=== PATIENT | male | born 2000 | race Hispanic/Latino ===

== ENCOUNTER 2018-04-05 20:11 | Emergency (ER) | payer SELFPAY ==
--- NOTE | 2018-04-05 20:29 | ER ---
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 pt ak1 denies N/V. Transition of care: patient was not received from another setting of care. Onset of symptoms is unknown. Risk Assessment: Do you want to hurt yourself or someone else? Patient reports no desire to harm self or others. Initial Sepsis Screen: Does the patient meet any 2 criteria? No. Patient's initial sepsis screen is negative. Does the patient have a suspected source of infection? No. Patient's initial sepsis screen is negative. Care prior to arrival: None. 20:16 Method Of Arrival: Ambulatory ak1 20:16 Acuity: RAMA 4 ak1 Triage Assessment: 20:17 General: Appears in no apparent distress. Behavior is calm, cooperative. ak1 Historical: - Allergies: 20:17 No Known Allergies; ak1 - Home Meds: 20:17 None [Active]; ak1 - PMHx: 20:17 None; ak1 - PSHx: 20:17 None; ak1 - Immunization history:: Adult Immunizations unknown. - Social history:: Smoking status: Patient/guardian denies using tobacco. - Ebola Screening: : No symptoms or risks identified at this time. Screenin:37 Abuse screen: Denies threats or abuse. Denies injuries from another. Nutritional lp1 screening: No deficits noted. Tuberculosis screening: No symptoms or risk factors identified. Fall Risk None identified. Assessment: 20:36 General: Appears in no apparent distress. Behavior is appropriate for age. Pain: Denies lp1 pain. Neuro: Level of Consciousness is awake, alert, obeys commands. Cardiovascular: Patient's skin is warm and dry. Respiratory: Respiratory effort is even, unlabored. GI: Abdomen is flat, Bowel sounds present X 4 quads. Abd is soft and non tender X 4 quads. : No signs and/or symptoms were reported regarding the genitourinary system. EENT: No signs and/or symptoms were reported regarding the EENT system. Derm: Skin is pink, warm \T\ dry. Musculoskeletal: Circulation, motion, and sensation intact. Vital Signs: 20:17 BP 112 / 73; Pulse 88; Resp 18; Temp 98.2; Pulse Ox 99% on R/A; Weight 63.5 kg (R); ak1 Height 5 ft. 7 in. (170.18 cm) (R); Pain 5/10; 20:17 Body Mass Index 21.93 (63.50 kg, 170.18 cm) ak1 ED Course: 20:14 Patient arrived in ED. es 20:17 Triage completed. ak1 20:17 Arm band placed on Patient placed in an exam room, Patient notified of wait time. ak1 20:18 Jonas Oswald MD is Attending Physician. gs 20:24 Hero Wong RN is Primary Nurse. ao 20:28 Hood Collins MD is Referral Physician. gs 20:37 No provider procedures requiring assistance completed. Patient did not have IV access lp1 during this emergency room visit. 20:38 Patient has correct armband on for positive identification. lp1 Administered Medications: No medications were administered Outcome: 20:28 Discharge ordered by . gs 20:38 Discharged to home ambulatory. lp1 20:38 Condition: good 20:38 Discharge instructions given to patient, Instructed on discharge instructions, follow up and referral plans. medication usage, Demonstrated understanding of instructions, follow-up care, medications, Prescriptions given X 1. 20:38 Patient left the ED. lp1 Signatures: Carie Posey Laura, RN RN 1 Saundra Haynes RN RN [facility] Hero Wong RN RN ao Starr, Gregory, MD MD gs
--- NOTE | 2018-04-05 20:29 | EDPHYS ---
Physician Documentation [facility] Name: Caleb Pinto Age: 17 yrs Sex: Male : 2000 Arrival Date: 04/05/2018 Time: 20:14 Bed 7 Private MD: ED Physician oJnas Oswald HPI: 04/05 20:26 This 17 yrs old Male presents to ER via Ambulatory with complaints of gs Abdominal Burn. 20:26 The patient presents with abdominal pain in the epigastric area. Onset: The gs symptoms/episode began/occurred gradually, 8 week(s) ago. The symptoms do not radiate. Associated signs and symptoms: Pertinent negatives: nausea and vomiting, diarrhea. The symptoms are described as burning. Modifying factors: The symptoms are alleviated by nothing, the symptoms are aggravated by food. Severity of pain: At its worst the pain was moderate in the emergency department the pain has resolved and did so earlier today. The patient has experienced similar episodes in the past, several times. The patient has not recently seen a physician. Historical: - Allergies: 20:17 No Known Allergies; ak1 - Home Meds: 20:17 None [Active]; ak1 - PMHx: 20:17 None; ak1 - PSHx: 20:17 None; ak1 - Immunization history:: Adult Immunizations unknown. - Social history:: Smoking status: Patient/guardian denies using tobacco. - Ebola Screening: : No symptoms or risks identified at this time. ROS: 20:26 All other systems are negative. gs Exam: 20:26 Head/Face: Normocephalic, atraumatic. Eyes: Pupils equal round and reactive to light, gs extra-ocular motions intact. Lids and lashes normal. Conjunctiva and sclera are non-icteric and not injected. Cornea within normal limits. Periorbital areas with no swelling, redness, or edema. ENT: Nares patent. No nasal discharge, no septal abnormalities noted. Tympanic membranes are normal and external auditory canals are clear. Oropharynx with no redness, swelling, or masses, exudates, or evidence of obstruction, uvula midline. Mucous membranes moist. Neck: Trachea midline, no thyromegaly or masses palpated, and no cervical lymphadenopathy. Supple, full range of motion without nuchal rigidity, or vertebral point tenderness. No Meningismus. Chest/axilla: Normal chest wall appearance and motion. Nontender with no deformity. No lesions are appreciated. Cardiovascular: Regular rate and rhythm with a normal S1 and S2. No gallops, murmurs, or rubs. Normal PMI, no JVD. No pulse deficits. Respiratory: Lungs have equal breath sounds bilaterally, clear to auscultation and percussion. No rales, rhonchi or wheezes noted. No increased work of breathing, no retractions or nasal flaring. Back: No spinal tenderness. No costovertebral tenderness. Full range of motion. Skin: Warm, dry with normal turgor. Normal color with no rashes, no lesions, and no evidence of cellulitis. MS/ Extremity: Pulses equal, no cyanosis. Neurovascular intact. Full, normal range of motion. Neuro: Awake and alert, GCS 15, oriented to person, place, time, and situation. Cranial nerves II-XII grossly intact. Motor strength 5/5 in all extremities. Sensory grossly intact. Cerebellar exam normal. Normal gait. 20:26 Constitutional: The patient appears in no acute distress, alert, awake. 20:26 Abdomen/GI: Palpation: nontender, in all quadrants, rebound tenderness, is not appreciated. Vital Signs: 20:17 BP 112 / 73; Pulse 88; Resp 18; Temp 98.2; Pulse Ox 99% on R/A; Weight 63.5 kg (R); ak1 Height 5 ft. 7 in. (170.18 cm) (R); Pain 5/10; 20:17 Body Mass Index 21.93 (63.50 kg, 170.18 cm) ak1 MDM: 20:23 Patient medically screened. gs 20:26 Differential diagnosis: gastritis, gastroesophageal reflux disease, non-specific abd gs pain. Data reviewed: vital signs, nurses notes. Administered Medications: No medications were administered Disposition: 04/05/18 20:28 Discharged to Home. Impression: Epigastric pain. - Condition is Stable. - Discharge Instructions: Abdominal Pain, Adult. - Prescriptions for Pepcid 20 mg Oral Tablet - take 1 tablet by ORAL route every 12 hours for 30 days; 60 tablet. - Medication Reconciliation Form, Thank You Letter, Antibiotic Education, Prescription Opioid Use form. - Follow up: Hood Collins MD; When: 2 - 3 days; Reason: Re-evaluation by your physician. Signatures: Rand Lemos RN RN lp1 Saundra Haynes RN RN ak1 Joans Oswald MD MD gs Corrections: (The following items were deleted from the chart) 20:38 20:28 04/05/2018 20:28 Discharged to Home. Impression: Epigastric pain. Condition is lp1 Stable. Forms are Medication Reconciliation Form, Thank You Letter, Antibiotic Education, Prescription Opioid Use. Follow up: Hood Collins; When: 2 - 3 days; Reason: Re-evaluation by your physician. gs
== END 2018-04-05 20:38 | disposition home or self-care (01) ==
LOC: ER 20:11
DX: R10.13 Epigastric pain (principal)
CPT/HCPCS: 99282

== ENCOUNTER 2018-04-12 07:02 | Emergency (ER) | payer SELFPAY ==
[2018-04-12 08:17] LABS: Absolute Lymphocytes (CBC) 1.6 K/uL (0.7-4.9); Absolute Monocytes 0.9 K/uL (0.1-1.3); Absolute Neutrophil 6.1 K/uL (1.8-8.0); Basophils % 0.5 % (0-1.3); Eosinophils % 0.5 % (0-4.4); Hematocrit 48.3 % (39.6-49.0); Lymphocytes % 18.5 % (15.3-44.8); MCH 33.2 pg (27.0-35.0); MPV 9.5 fL (7.6-11.3); Monocytes % 10.3 % (3.3-12.3); RBC Red Blood Cell Count 4.98 M/uL (4.33-5.43)
[2018-04-12 08:39] LABS: ALT/SGPT 39 U/L (12-78); AST/SGOT 25 U/L (15-37); Albumin 4.4 g/dL (3.4-5.0); Alkaline Phosphatase 92 U/L (45-117); Amylase Level 45 U/L (25-115); BUN Blood Urea Nitrogen 13 mg/dL (7-18); Bicarbonate 29 mmol/L (21-32); Bilirubin Direct 0.2 mg/dL (0-0.2); Bilirubin Total 0.6 mg/dL (0.2-1.0); Glucose Level 90 mg/dL (74-106); Lipase 103 U/L (73-393); Potassium 3.7 mmol/L (3.5-5.1); Protein, Total 7.9 g/dL (6.4-8.2); Sodium Level 141 mmol/L (136-145)
[2018-04-12 08:42] LABS: Urine Bacteria <20 /HPF (NONE SEEN); Urine Culture Reflex Order NOT NEEDED; Urine RBC <5 /HPF (NONE SEEN)
[2018-04-12 08:42] LABS: Urine Blood NEGATIVE (NEG); Urine Glucose NEGATIVE (NEG); Urine Protein NEGATIVE (NEG); Urine Specific Gravity 1.025 (1.005-1.030)
--- NOTE | 2018-04-12 08:44 | EDPHYS ---
Physician Documentation [facility] Name: Caleb Pinto Age: 17 yrs Sex: Male : 2000 Arrival Date: 04/12/2018 Time: 07:03 Bed 14 Private MD: ED Physician Dean Pan HPI: 04/12 07:54 This 17 yrs old Male presents to ER via Ambulatory with complaints of andrea Abdominal Pain. 07:54 The patient presents with abdominal pain in the epigastric area, in the upper abdomen. andrea Onset: The symptoms/episode began/occurred 3 day(s) ago. The symptoms do not radiate. Associated signs and symptoms: none. Severity of pain: At its worst the pain was mild in the emergency department the pain is unchanged. Historical: - Allergies: 07: NKA; iw - Home Meds: :23 None [Active]; iw - PMHx: :23 None; iw - PSHx: 07:23 None; iw - Immunization history:: Adult Immunizations not up to date. - Social history:: Smoking status: Patient/guardian denies using tobacco. - Ebola Screening: : Patient negative for fever greater than or equal to 101.5 degrees Fahrenheit, and additional compatible Ebola Virus Disease symptoms Patient denies exposure to infectious person Patient denies travel to an Ebola-affected area in the 21 days before illness onset No symptoms or risks identified at this time. - Family history:: not pertinent. ROS: 07:54 Constitutional: Negative for fever, chills, and weight loss, Eyes: Negative for injury, andrea pain, redness, and discharge, ENT: Negative for injury, pain, and discharge, Neck: Negative for injury, pain, and swelling, Cardiovascular: Negative for chest pain, palpitations, and edema, Respiratory: Negative for shortness of breath, cough, wheezing, and pleuritic chest pain, Back: Negative for injury and pain, : Negative for injury, bleeding, discharge, and swelling, MS/Extremity: Negative for injury and deformity, Skin: Negative for injury, rash, and discoloration, Neuro: Negative for headache, weakness, numbness, tingling, and seizure, Psych: Negative for depression, anxiety, suicide ideation, homicidal ideation, and hallucinations, Allergy/Immunology: Negative for hives, rash, and allergies, Endocrine: Negative for neck swelling, polydipsia, polyuria, polyphagia, and marked weight changes, Hematologic/Lymphatic: Negative for swollen nodes, abnormal bleeding, and unusual bruising. 07:54 Abdomen/GI: Positive for abdominal pain, of the epigastric area, right upper quadrant and left upper quadrant. Exam: 07:54 Constitutional: This is a well developed, well nourished patient who is awake, alert, andrea and in no acute distress. Head/Face: Normocephalic, atraumatic. Eyes: Pupils equal round and reactive to light, extra-ocular motions intact. Lids and lashes normal. Conjunctiva and sclera are non-icteric and not injected. Cornea within normal limits. Periorbital areas with no swelling, redness, or edema. ENT: Nares patent. No nasal discharge, no septal abnormalities noted. Tympanic membranes are normal and external auditory canals are clear. Oropharynx with no redness, swelling, or masses, exudates, or evidence of obstruction, uvula midline. Mucous membranes moist. Neck: Trachea midline, no thyromegaly or masses palpated, and no cervical lymphadenopathy. Supple, full range of motion without nuchal rigidity, or vertebral point tenderness. No Meningismus. Chest/axilla: Normal chest wall appearance and motion. Nontender with no deformity. No lesions are appreciated. Cardiovascular: Regular rate and rhythm with a normal S1 and S2. No gallops, murmurs, or rubs. Normal PMI, no JVD. No pulse deficits. Respiratory: Lungs have equal breath sounds bilaterally, clear to auscultation and percussion. No rales, rhonchi or wheezes noted. No increased work of breathing, no retractions or nasal flaring. Abdomen/GI: Soft, non-tender, with normal bowel sounds. No distension or tympany. No guarding or rebound. No evidence of tenderness throughout. Back: No spinal tenderness. No costovertebral tenderness. Full range of motion. Male : Normal genitalia with no discharge or lesions. Skin: Warm, dry with normal turgor. Normal color with no rashes, no lesions, and no evidence of cellulitis. MS/ Extremity: Pulses equal, no cyanosis. Neurovascular intact. Full, normal range of motion. Neuro: Awake and alert, GCS 15, oriented to person, place, time, and situation. Cranial nerves II-XII grossly intact. Motor strength 5/5 in all extremities. Sensory grossly intact. Cerebellar exam normal. Normal gait. Psych: Awake, alert, with orientation to person, place and time. Behavior, mood, and affect are within normal limits. Vital Signs: 07:23 BP 113 / 58; Pulse 70; Resp 16; Temp 97.9(O); Pulse Ox 100% on R/A; Weight 65.77 kg; iw Height 5 ft. 7 in. (170.18 cm); Pain 6/10; 09:01 BP 103 / 73; Pulse 61; Resp 16; Pulse Ox 100% ; Pain 2/10; jl7 07:23 Body Mass Index 22.71 (65.77 kg, 170.18 cm) iw MDM: 07:23 Patient medically screened. [facility] 08:43 Data reviewed: vital signs, nurses notes, lab test result(s), radiologic studies, andrea ultrasound. 04/12 07:54 Order name: Amylase, Serum; Complete Time: 08:42 [facility] 04/12 07:54 Order name: Basic Metabolic Panel; Complete Time: 08:42 [facility] 04/12 07:54 Order name: CBC with Diff; Complete Time: 08:42 [facility] 04/12 07:54 Order name: Creatinine for Radiology; Complete Time: 08:42 [facility] 04/12 07:54 Order name: Hepatic Function; Complete Time: 08:42 [facility] 04/12 07:54 Order name: Lipase; Complete Time: 08:42 [facility] 04/12 07:54 Order name: Urine Microscopic Only [facility] 04/12 07:54 Order name: IV Saline Lock; Complete Time: 08:51 [facility] 04/12 07:54 Order name: Labs collected and sent; Complete Time: 08:51 [facility] 04/12 07:54 Order name: US Abdomen Limited [facility] 04/12 08:14 Order name: Urine Dipstick--Ancillary (enter results) 04/12 07:54 Order name: Urine Dipstick-Ancillary (obtain specimen); Complete Time: 08:51 [facility] Administered Medications: 08:48 Drug: NS 0.9% 1000 ml Route: IV; Rate: 1 bolus; Site: right antecubital; jl7 08:57 Follow up: Response: No adverse reaction; IV Status: IV converted to saline lock; IV jl7 Intake: 300ml 08:49 Drug: Pepcid 20 mg Route: IVP; Site: right antecubital; jl7 08:59 Follow up: Response: No adverse reaction; Pain is decreased jl7 08:51 Drug: Maalox Suspension (200 mg-200 mg-20 mg/5 mL) 30 ml Route: PO; jl7 08:58 Follow up: Response: No adverse reaction; Pain is decreased jl7 Disposition: 04/12/18 08:43 Discharged to Home. Impression: Abdominal tenderness, Gastritis, unspecified. - Condition is Stable. - Discharge Instructions: Abdominal Pain, Adult, Abdominal Pain, Adult, [id number]. - Prescriptions for Bentyl 20 mg Oral Tablet - take 1 tablet by ORAL route every 6 hours As needed; 20 tablet. Pepcid 20 mg Oral Tablet - take 1 tablet by ORAL route every 12 hours for 10 days; 20 tablet. - Medication Reconciliation Form, Thank You Letter, Antibiotic Education, Prescription Opioid Use form. - Follow up: Private Physician; When: 2 - 3 days; Reason: Recheck today's complaints, Continuance of care, Re-evaluation by your physician. Follow up: Hood Collins; When: 2 - 3 days; Reason: Recheck today's complaints, Re-evaluation by your physician. - Problem is new. - Symptoms have improved. Signatures: Dispatcher [employer] EDMS Dean Pan MD MD cha Williams, Irene, Luis Malhotra RN, RN RN jl7 Corrections: (The following items were deleted from the chart) 09:03 08:43 04/12/2018 08:43 Discharged to Home. Impression: Abdominal tenderness; Gastritis, jl7 unspecified. Condition is Stable. Discharge Instructions: Abdominal Pain, Adult, Abdominal Pain, Adult, [id number]. Prescriptions for Bentyl 20 mg Oral Tablet - take 1 tablet by ORAL route every 6 hours As needed; 20 tablet, Pepcid 20 mg Oral Tablet - take 1 tablet by ORAL route every 12 hours for 10 days; 20 tablet. and Forms are Medication Reconciliation Form, Thank You Letter, Antibiotic Education, Prescription Opioid Use. Follow up: Private Physician; When: 2 - 3 days; Reason: Recheck today's complaints, Continuance of care, Re-evaluation by your physician. Follow up: Hood Collins; When: 2 - 3 days; Reason: Recheck today's complaints, Re-evaluation by your physician. Problem is new. Symptoms have improved. andrea
--- NOTE | 2018-04-12 08:44 | ER ---
Nurse's Notes [facility] Name: Caleb Pinto Age: 17 yrs Sex: Male : 2000 Arrival Date: 04/12/2018 Time: 07:03 Bed 14 Private MD: Diagnosis: Abdominal tenderness;Gastritis, unspecified Presentation: 04/12 07:22 Presenting complaint: Patient states: c/o mid abd pain since this morning, denies n/v/d iw denies urinary symptoms, pain is 6/10, intermittent, last BM was yesterday, normal. Transition of care: patient was not received from another setting of care. Onset of symptoms was April 12, 2018. Risk Assessment: Do you want to hurt yourself or someone else? Patient reports no desire to harm self or others. Initial Sepsis Screen: Does the patient meet any 2 criteria? No. Patient's initial sepsis screen is negative. Does the patient have a suspected source of infection? No. Patient's initial sepsis screen is negative. Care prior to arrival: None. 07:22 Method Of Arrival: Ambulatory iw 07:22 Acuity: RAMA 3 iw Historical: - Allergies: 07:23 NKA; iw - Home Meds: 07:23 None [Active]; iw - PMHx: 07:23 None; iw - PSHx: 07:23 None; iw - Immunization history:: Adult Immunizations not up to date. - Social history:: Smoking status: Patient/guardian denies using tobacco. - Ebola Screening: : Patient negative for fever greater than or equal to 101.5 degrees Fahrenheit, and additional compatible Ebola Virus Disease symptoms Patient denies exposure to infectious person Patient denies travel to an Ebola-affected area in the 21 days before illness onset No symptoms or risks identified at this time. - Family history:: not pertinent. Screenin:53 Abuse screen: Denies threats or abuse. Denies injuries from another. Nutritional jl7 screening: No deficits noted. Tuberculosis screening: No symptoms or risk factors identified. Fall Risk IV access (20 points). Total Angel Fall Scale indicates No Risk (0-24 pts). Assessment: 07:53 General: Appears in no apparent distress. uncomfortable, Behavior is calm, cooperative, jl7 appropriate for age. Pain: Complains of pain in left upper quadrant Pain does not radiate. Pain currently is 7 out of 10 on a pain scale. Quality of pain is described as aching, Pain began suddenly, Is continuous. Neuro: Level of Consciousness is awake, alert, obeys commands, Oriented to person, place, time. Cardiovascular: Patient's skin is warm and dry. Respiratory: Airway is patent Respiratory effort is even, unlabored, Respiratory pattern is regular, symmetrical. GI: Abdomen is flat, non-distended, Last BM was April 11, 2018. Bowel sounds present X 4 quads. Abd is soft X 4 quads Abdomen is tender to palpation in left upper quadrant Patient currently denies diarrhea, nausea, vomiting. : No signs and/or symptoms were reported regarding the genitourinary system. EENT: No signs and/or symptoms were reported regarding the EENT system. Derm: Skin is pink, warm \T\ dry. Musculoskeletal: No signs and/or symptoms reported regarding the musculoskeletal system. 08:45 Reassessment: Patient and/or family updated on plan of care and expected duration. Pain jl7 level reassessed. Patient is alert, oriented x 3, equal unlabored respirations, skin warm/dry/pink. Vital Signs: 07:23 BP 113 / 58; Pulse 70; Resp 16; Temp 97.9(O); Pulse Ox 100% on R/A; Weight 65.77 kg; iw Height 5 ft. 7 in. (170.18 cm); Pain 6/10; 09:01 BP 103 / 73; Pulse 61; Resp 16; Pulse Ox 100% ; Pain 2/10; jl7 07:23 Body Mass Index 22.71 (65.77 kg, 170.18 cm) iw ED Course: 07:03 Patient arrived in ED. ds1 07:23 Dean Pan MD is Attending Physician. andrea 07:23 Triage completed. iw 07:23 Arm band placed on. iw 07:48 Luis Terrazas RN is Primary Nurse. jl7 07:53 Patient has correct armband on for positive identification. Placed in gown. Bed in low jl7 position. Call light in reach. Side rails up X 1. Pulse ox on. NIBP on. 08:07 Ultrasound completed. Patient tolerated well. Patient taken to ultrasound. via hr wheelchair. Patient moved back from ultrasound. 08:14 Initial lab(s) drawn, by me, sent to lab. Urine collected: clean catch specimen, clear. mh5 Inserted saline lock: 20 gauge in right forearm, using aseptic technique. Blood collected. 08:25 US Abdomen Limited In Process Unspecified. EDKY 08:43 Hood Collins MD is Referral Physician. [facility] 08:45 No provider procedures requiring assistance completed. IV discontinued, intact, jl7 bleeding controlled, No redness/swelling at site. Pressure dressing applied. Administered Medications: 08:48 Drug: NS 0.9% 1000 ml Route: IV; Rate: 1 bolus; Site: right antecubital; jl7 08:57 Follow up: Response: No adverse reaction; IV Status: IV converted to saline lock; IV jl7 Intake: 300ml 08:49 Drug: Pepcid 20 mg Route: IVP; Site: right antecubital; jl7 08:59 Follow up: Response: No adverse reaction; Pain is decreased jl7 08:51 Drug: Maalox Suspension (200 mg-200 mg-20 mg/5 mL) 30 ml Route: PO; jl7 08:58 Follow up: Response: No adverse reaction; Pain is decreased jl7 Intake: 08:57 IV: 300ml; Total: 300ml. jl7 Outcome: 08:43 Discharge ordered by . [facility] 09:01 Discharged to home ambulatory. jl7 09:01 Condition: stable 09:01 Discharge instructions given to patient, Instructed on discharge instructions, follow up and referral plans. medication usage, Demonstrated understanding of instructions, follow-up care, medications, Prescriptions given X 2. 09:03 Patient left the ED. jl7 Signatures: Dispatcher [employer] EDKY Dean Pan MD MD cha Rod, Haley hr Sanford, Bárbara ds1 Farida Rojas, RN [facility] Luis Terrazas RN RN jl7
[2018-04-12] MEDS ORDERED: MAGNE/ALUM HYDROXD 30 ML UCUP ONE (08:46)
[2018-04-12] MEDS ORDERED: FAMOTIDINE 20 MG/2 ML VIAL IV ONE (08:47)
[2018-04-12] MEDS ORDERED: NA CHLORIDE 0.9% 500 ML ONE (08:47)
[2018-04-12] MEDS ORDERED: NA CHLORIDE 0.9% 0 ML ONE (08:47)
--- NOTE | 2018-04-12 09:15 | RAD REPORT ---
EXAM DESCRIPTION: US - Abdomen Exam Limited - 04/12/2018 8:25 am CLINICAL HISTORY: Abdominal pain. COMPARISON: None. FINDINGS: The gallbladder wall is not thickened. A gallstone is not seen. The biliary tree is normal caliber. IMPRESSION: Unremarkable gallbladder ultrasound.
== END 2018-04-12 09:03 | disposition home or self-care (01) ==
LOC: ER 07:02
DX: K29.70 Gastritis, unspecified, without bleeding (principal)
CPT/HCPCS: 36415; 76705; 80048; 80076; 81003; 81015; 82150; 83690; 85025; 96374; 99284; J7030